=== PATIENT | female | born 1990 | race Caucasian/White ===

== ENCOUNTER 2019-02-10 12:04 | Emergency (ER) | payer OTHER ==
[~2019-02-10] VITALS: Ht 154.9 cm; Wt 83.0 kg
[2019-02-10 12:36] VITALS: BP 117/72; PULSE 92; RESP 18; Ht 154.9 cm; Wt 83.0 kg
[2019-02-10] MEDS ORDERED: SODI126M NASAL (13:26)
--- NOTE | 2019-02-10 13:30 | ERD ---
ER Documentation Chief Complaint Chief Complaint sent by pmd, nose bleed after sneezing this am 37 wks HPI 28-year-old female presents with complaint of epistaxis which occurred this morning. Patient states that the bleeding lasted about 5 minutes. She called her primary care provider who said that she should come to the ER. Denies any current bleeding. Denies history of bleeding disorders. Denies dizziness, lightheadedness, palpitations, syncope. ROS All systems reviewed and are negative except as per history of present illness. Medications Home Meds Active Scripts Sodium Chloride (Saline Nasal Mist) 126 Ml Mist, 2 SPRAY NASAL Q4 PRN for nose bleed, #1 BOTTLE Prov:DAVID MENJIVAR 02/10/19 Allergies Allergies: Coded Allergies: No Known Allergy (Unverified , 02/10/19) Physical Exam Vitals Vital Signs Date Temp Pulse Resp B/P (MAP) Pulse Ox O2 O2 Flow FiO2 Time Delivery Rate 02/10/19 98.2 92 18 117/72 98 12:36 (87) Physical Exam Const: No acute distress Head: Atraumatic Eyes: Normal Conjunctiva ENT: Normal External Ears, Nose and Mouth. No discharge or blood coming out of the nose. Neck: Full range of motion. No meningismus. Resp: Clear to auscultation bilaterally Cardio: Regular rate and rhythm, no murmurs Abd: Soft, non tender, non distended. Normal bowel sounds Skin: No petechiae or rashes Back: No midline or flank tenderness Ext: No cyanosis, or edema Neur: Awake and alert Psych: Normal Mood and Affect Procedures/MDM DM: Patient's presentation is consistent with epistaxis episode which self resolved. Patient does not need any treatment at this time. Patient was reassured that there was no clinical concern but the patient could use nasal saline mist in order to prevent possible episodes of epistaxis in the future. I have low suspicion for symptomatic anemia, bleeding disorder, shock, or any other emergent condition. Patient discharged with strict ER precautions. Patient advised to follow up with PMD. All questions answered at discharge. Departure Diagnosis: Primary Impression: Epistaxis Condition: Stable Patient Instructions: Epistaxis (Adult) Referrals: COMMUNITY CLINICS YOU HAVE RECEIVED A MEDICAL SCREENING EXAM AND THE RESULTS INDICATE THAT YOU DO NOT HAVE A CONDITION THAT REQUIRES URGENT TREATMENT IN THE EMERGENCY DEPARTMENT. FURTHER EVALUATION AND TREATMENT OF YOUR CONDITION CAN WAIT UNTIL YOU ARE SEEN IN YOUR DOCTORS OFFICE WITHIN THE NEXT 1-2 DAYS. IT IS YOUR RESPONSIBILITY TO MAKE AN APPOINTMENT FOR FOLOW-UP CARE. IF YOU HAVE A PRIMARY DOCTOR --you should call your primary doctor and schedule an appointment IF YOU DO NOT HAVE A PRIMARY DOCTOR YOU CAN CALL OUR PHYSICIAN REFERRAL HOTLINE AT IF YOU CAN NOT AFFORD TO SEE A PHYSICIAN YOU CAN CHOSE FROM THE FOLLOWING CRITICAL [facility]ESS [facility] CLINICS [facility] [address] [facility] [address] [facility] [facility] [address] [facility] [address] [facility] [address] [facility] [facility]. [address] Additional Instructions: FOLLOW UP WITH YOUR PRIMARY CARE PHYSICIAN TOMORROW.Return to this facility if you are not improving as expected. DAVID MENJIVAR Feb 10, 2019 13:29
== END 2019-02-10 14:04 | disposition left against medical advice (07) ==
LOC: FTE 12:04
DX: O99.89 Other specified diseases and conditions complicating pregnancy, childbirth and the puerperium (principal); R04.0 Epistaxis; Z3A.37 37 weeks gestation of pregnancy
CPT/HCPCS: 99282

== ENCOUNTER 2019-02-28 09:00 | Inpatient (IN) | payer OTHER ==
[~2019-02-28] VITALS: Ht 162.6 cm; Wt 84.4 kg
[~2019-02-28 09:00] MED LIST: SODI126M NASAL
[2019-03-04 07:20] VITALS: Ht 162.6 cm; Wt 84.4 kg
[2019-03-04] MEDS ORDERED: CARBOPROST 250 MCG INJ IM PRN ×2 (07:30→10:30)
[2019-03-04] MEDS ORDERED: MISOPROSTOL 200 MCG TAB PR PRN ×2 (07:30→10:30)
[2019-03-04] MEDS ORDERED: OXYTOCIN 30 UNITS/LR 500 ML IV SCH ×2 (07:30→10:07)
[2019-03-04] MEDS ORDERED: METHYLERGONOVINE 0.2 MG INJ IM PRN ×2 (07:30→10:30)
[2019-03-04] MEDS ORDERED: OXYTOCIN 30 UNITS/LR 500 ML IV PRN ×2 (07:30→10:30)
--- NOTE | 2019-03-04 07:32 | PREOPHP ---
DATE OF ADMISSION: 03/04/2019 HISTORY OF PRESENT ILLNESS: This is a 27-year-old lady, 2, para 1. Her EDC 03/07/2019. She is about 39 and 4/7 weeks , admitted to labor and delivery area for repeat . She h ad care in my [place] office and the care was uneventful. She had one previous C-s ection, so she likes to have a repeat . The procedures were explained to the patient and sh e understood everything totally. The risks, benefits and alternatives were discussed with her as wel l, but chose to have the done. OBSTETRICAL HISTORY: She is 2, para 1. Her first delivery was in 2013 by . GYNECOLOGIC HISTORY: She had menarche at the age of 13, every 28 days interval, 3 to 4 days duration , and moderate in amount. FAMILY HISTORY: Noncontributory, except her sister had kidney problems. REVIEW OF SYSTEMS: CARDIOVASCULAR: No chest pains. RESPIRATORY: No cough. GASTROINTESTINAL: No diarrhea. No vomiting. GENITOURINARY: No dysuria. PHYSICAL EXAMINATION: GENERAL: Reveals a conscious, coherent lady and in no acute distress. VITAL SIGNS: Her blood pressure 120/80, pulse rate 80 per minute, respirations 16 per minute. BREASTS, HEART AND LUNGS: Within normal limits. ABDOMEN: Soft, fundic height 37 cm. heart tones 140 per minute. PELVIC: Deferred. RECTAL: Confirmed the pelvic findings. EXTREMITIES: No pedal edema. ADMITTING DIAGNOSIS: A 39 and 4/7 weeks intrauterine with one previous section. PLAN: The patient was planned to have repeat per patient request. As mentioned, the proce dures were explained to the patient and she understood everything totally. The risks, benefits, and alternatives were discussed with her as well. Dictated By: REGINA MURILLO/JEREMY Conf#: [id number] DID#: [id number]
[2019-03-04] MEDS ORDERED: ONDANSETRON 4 MG INJ IV STA (07:37)
[2019-03-04] MEDS ORDERED: FAMOTIDINE 20 MG INJ IV ONE (08:00)
[2019-03-04] MEDS ORDERED: METOCLOPRAMIDE 10 MG INJ IV ONE (08:00)
[2019-03-04] MEDS: LACTATED RINGER'S 1,000 ML IV SCH ×3 (08:08→23:28)
[2019-03-04] MEDS ORDERED: morphine SULFATE/PF (10 MG/10 ML) INJ ONE (08:17)
[2019-03-04] MEDS ORDERED: OXYTOCIN 10 UNIT INJ ONE (08:18)
[2019-03-04] MEDS ORDERED: OXYTOCIN 30 UNITS/LR 500 ML IV ONE (08:18)
--- NOTE | 2019-03-04 08:22 | PREAC ---
Date/Time of Note Date/Time of Note DATE: 03/04/19 TIME: 08:21 Anesthesia Eval and Record Evaluation Time Pre-Procedure Interview DATE: 03/04/19 TIME: 08:21 Age 28 Sex female NPO: 8 hrs Preoperative diagnosis term labor, prev Csection Planned procedure repeat Csection Past Medical History Past Medical History: None Surgery & Anesthesia Issues No known issue Meds Anticoagulation: No Beta Sophia within 24 hr: No Reason Beta Sophia not given: Pt. not on B-Sophia Active Scripts Sodium Chloride (Saline Nasal Mist) 126 Ml Mist, 2 SPRAY NASAL Q4 PRN for nose bleed, #1 BOTTLE Prov:DAVID MENJIVAR 02/10/19 Current Medications Lactated Ringer's 1,000 ml @ 125 mls/hr Q8H IV Last administered on 03/04/19at 08:08; Admin Dose 125 MLS/HR; Start 03/04/19 at 07:19 Cefazolin Sodium/ Dextrose 50 ml @ 100 mls/hr ONCE IVPB ; Start 03/04/19 at 07:30 Oxytocin/Lactated Ringer's 500 ml @ 125 mls/hr POST IV ; Start 03/04/19 at 07:30 Oxytocin/Lactated Ringer's 500 ml @ 0 mls/hr ONCE PRN IV .VAGINAL BLEEDING; Start 03/04/19 at 07:30 Methylergonovine Maleate (Methergine) 0.2 mg ONCE PRN IM .VAGINAL BLEEDING; Start 03/04/19 at 07:30 Carboprost Tromethamine (Hemabate) 250 mcg ONCE PRN IM .VAGINAL BLEEDING; Start 03/04/19 at 07:30 Misoprostol (Cytotec) 1,000 mcg ONCE PRN RI .VAGINAL BLEEDING; Start 03/04/19 at 07:30 Meds reviewed: Yes Allergies Coded Allergies: No Known Allergy (Unverified , 03/04/19) Allergies Reviewed: Yes Labs/Studies Labs Reviewed: Reviewed by anesthesiologist Result Diagram: 03/04/1930 Laboratory Tests 03/04/19 07:30 Blood Bank Test 03/04/19 07:30 Blood Type O POSITIVE Rh Immune Globulin Candidate NO test: Positive Pre-procedure Exam Airway: Adequate mouth opening, Adequate thyromental dist Mallampati: Mallampati III Teeth: Normal Lung: Normal Heart: Normal ASA Physical Status ASA physical status: 2 Emergency: None Planned Anesthetic Neuraxial: Spinal Planned Pain Management Sub-arachniod narcotics, Parenteral pain med, Other neuraxial med Pre-operative Attestations Prior to commencing anesthesia and surgery, the patient was re-evaluated, there was verification of: *The patient's identity *The results of appropriate recent lab work and preoperative vital signs *The above evaluation not changing prior to induction *Anesthetic plan, risk benefits, alternative and complications discussed with patient/family; questions answered; patient/family understands, accepts and wishes to proceed. KATHERINE SANDHU MD March 04, 2019 08:22
[2019-03-04] MEDS ORDERED: FENTAnyl 50 MCG/ML VIAL IV PRN ×2 (08:30)
[2019-03-04] MEDS ORDERED: KETOROLAC 30 MG INJ IV PRN ×2 (08:30)
[2019-03-04] MEDS ORDERED: HYDROmorphONE 1 MG/5 ML IV SYRINGE IV PRN ×3 (08:30)
[2019-03-04] MEDS ORDERED: HYDROmorphONE 0.5 MG/0.5 ML SYG IV PRN ×2 (08:30)
[2019-03-04] MEDS ORDERED: ONDANSETRON 4 MG INJ IV PRN ×2 (08:30)
[2019-03-04] MEDS ORDERED: NALOXONE (0.4 MG/ML) INJ IV PRN ×3 (08:30)
[2019-03-04] MEDS ORDERED: ZOLPIDEM 5 MG TAB PO PRN (08:30)
[2019-03-04] MEDS ORDERED: DIPHENHYDRAMINE 50 MG INJ IV PRN ×2 (08:30)
[2019-03-04] MEDS ORDERED: LACTATED RINGER'S 1,000 ML IV SCH (10:07)
--- NOTE | 2019-03-04 10:07 | OPPN ---
Date/Time of Note Date/Time of Note DATE: 03/04/19 TIME: 10:04 Operative Report Planned Procedure Procedure date March 04, 2019 Procedure(s) REPEAT LTCS Performed by see signature line Personal Care Attendant: ADE KIMBLE MD 2nd Personal Care Attendant none Anesthesiologist: KATHERINE SANDHU MD Pre-procedure diagnosis 39 4/7 IUP PREVIOS CSECTION [id number] Anesthesia Type: Gixld2k spinal Post-Procedure Post-procedure diagnosis 39 4/7 IUP Findings Live Baby, Apgars 8and9, [id number] 8OZ [id number] Estimated Blood Loss: 500 - 600 mls Specimen(s) none Grafts/Implant(s) PLACENTA Complication(s) none REGINA CAMPOS MD March 04, 2019 10:07
[2019-03-04] MEDS ORDERED: HYDROCODONE/APAP (5/325) TAB PO PRN (10:30)
[2019-03-04] MEDS ORDERED: METHYLERGONOVINE 0.2 MG TAB PO PRN (10:30)
[2019-03-04] MEDS ORDERED: LANOLIN HPA 1 PKT TOP PRN (10:30)
[2019-03-04] MEDS ORDERED: IBUPROFEN 800 MG TAB PO PRN (10:30)
[2019-03-04] MEDS: CEFAZOLIN 2 GM/50 ML (PMX) 50 ML IVPB SCH ×2 (11:26→16:36)
[2019-03-04 14:55] VITALS: BP 103/65; PULSE 73; RESP 18
--- NOTE | 2019-03-04 16:41 | PAC ---
Date/Time of Note Date/Time of Note DATE: 03/04/19 TIME: 16:40 Post-Anesthesia Notes Post-Anesthesia Note Last documented vital signs Vital Signs Date Temp Pulse Resp B/P (MAP) Pulse Ox O2 O2 Flow FiO2 Time Delivery Rate 03/04/19 98.0 73 18 103/65 14:55 (78) Activity: WNL Respiratory function: WNL Cardiovascular function: WNL Mental status: Baseline Pain reasonably controlled: Yes Hydration appropriate: Yes Nausea/Vomiting absent: Yes KATHERINE SANDHU MD March 04, 2019 16:41
[2019-03-04 18:33] VITALS: BP 108/64; PULSE 67; RESP 18
[2019-03-04 19:55] VITALS: BP 103/69; PULSE 86; RESP 19
[2019-03-04] MEDS: SENNA/DOCUSATE NA (8.6MG/50MG) TAB PO SCH (21:20)
[2019-03-04 23:55] VITALS: BP 114/63; PULSE 75; RESP 19
[2019-03-05 03:15] VITALS: BP 114/70; PULSE 80; RESP 18
--- NOTE | 2019-03-05 06:21 | OPR ---
DATE OF OPERATION: 03/04/2019 PREOPERATIVE DIAGNOSIS: A 39 and 4/7 weeks intrauterine with 1 previous , desires repeat . POSTOPERATIVE DIAGNOSIS: A 39 and 4/7 weeks intrauterine with 1 previous , desire s repeat . OPERATION PERFORMED: Repeat low transverse section. SURGEON: Regina Parrish MD CERTIFIED TECHNICIAN: Dr. Matt ANESTHESIA: Spinal. ANESTHESIOLOGIST: Dr. Marti. OPERATIVE TECHNIQUE: Under spinal anesthesia, the patient was prepped and draped in the usual fashio n for abdominal surgery. After checking for the effect of the anesthesia, the previous Pfannenstiel scar was excised. A 10 cm skin incision was performed. The incision was carried from the skin up to the fascia. Upon opening the skin up to the fascia, the small blood vessels were noted to be oozing and these were all cauterized. Fascia was opened transversely followed by splitting the muscles reva tically and the peritoneum vertically. Upon opening the abdominal cavity, the bladder blade was put in place. A small rubia was performed from the serosa up to the endometrium, and the rubia was carried sideways with the aid of my 2 fingers and the incision was carried out and the rubia was carried side ways with the aid of my 2 fingers. My left hand was inserted in the lower segment of the uterus and the bag of water was ruptured. Clear fluid was noted. Baby's head was delivered with good fundal pr essure. The baby's airway was quickly suctioned with amniotic fluid. The anterior shoulder, posteri or shoulder, and rest of the body of the baby was delivered. Baby's cord was clamped after 30 second s and baby was handed to the manufacturing plant technician and to the nursery nurse. The placenta was delivered m anually and complete. The uterus was exteriorized. The uterus was cleansed with wet lap sponge to m omari sure that no membranes were left behind. After correct sponge count, the uterus was closed in the usual fashion using #1 chromic for the first layer, continuous locking suture was used follow ed by #1 chromic for the second layer, imbricating sutures were used. Bleeders were checked, and the re was no bleeding noted. After checking for bleeders in which there were none, both tubes and ovari es were inspected. They were healthy looking. The back of the uterus was checked for any hematoma a nd there was none noted. There was a 4 x 4 cm intramural fibroids noted in the mid back of the uteru s. Both ovaries were inspected, they were healthy looking and both tubes. The broad ligament was ch ecked for any hematoma and there was none noted. After correct sponge, then the uterus was put back to the pelvic cavity. Once again, uterine incision was checked for any bleeders and there was no ble eding noted. After correct sponge count, needle count and instrument count as confirmed by the oil bay technician and slinger sequins, the abdomen was closed in the usual fashion using 0 Vicryl for the peritoneum, 0 Vicryl for the muscles, for the fascia 0 Vicryl continuous stitch was used followed by few figure-o f-eight sutures, for the subcutaneous tissue, it was closed with 3-0 Vicryl and the skin was closed w ith 3-0 Vicryl, subcuticular suture was used. The patient tolerated the procedure well. Estimated b lood loss about 600 mL. Vital signs were stable during and after the procedure. She delivered a hea lthy baby girl, 8 and 9 at 09:23 a.m., 19 inches long, 2960 grams, 6 pounds 8 ounces. Dictated By: REGINA MURILLO/JEREMY Conf#: [id number] DID#: [id number]
[2019-03-05] MEDS: LACTATED RINGER'S 1,000 ML IV SCH (07:19)
[2019-03-05 08:00] VITALS: BP 129/83; PULSE 86; RESP 17
[2019-03-05] MEDS: CEFAZOLIN 2 GM/50 ML (PMX) 50 ML IVPB SCH (08:51)
[2019-03-05] MEDS: SENNA/DOCUSATE NA (8.6MG/50MG) TAB PO SCH ×2 (09:04→20:12)
[2019-03-05] MEDS: HYDROCODONE/APAP (5/325) TAB PO PRN ×2 (10:46→16:51)
[2019-03-05 15:35] VITALS: BP 113/70; PULSE 99; RESP 18
--- NOTE | 2019-03-05 18:41 | PN ---
Date/Time of Note Date/Time of Note DATE: 03/05/19 TIME: 18:40 Assessment/Plan VTE Prophylaxis Risk score (from Ns)>0 risk: 3 SCD applied (from Ns): Yes Pharmacological prophylaxis: NA/contraindicated Pharm contraindication: low risk/ambulating Lines/Catheters IV Catheter Type (from Nrs): Peripheral IV Assessment/Plan Assessment/Plan POSTCSECTION DAY 1 ORDERED ADVANCE DIET TOLERATED CBC ON 3RD POSTOP DAY Result Diagram: 03/05/19 0740 03/05/19 0739 Results 24hrs Laboratory Tests Test 03/05/19 06:12 03/05/19 07:39 03/05/19 07:40 Lab Scanned Report REFERENCE LAB Sodium Level 135 Potassium Level 3.6 Chloride Level 106 Carbon Dioxide Level 25 Anion Gap 4 L Blood Urea Nitrogen 4 L Creatinine 0.57 Est Glomerular Filtrat > 60 Rate mL/min Glucose Level 92 Calcium Level 8.8 White Blood Count 11.9 #H Red Blood Count 3.94 L Hemoglobin 11.5 L Hematocrit 34.7 L Mean Corpuscular Volume 88.1 Mean Corpuscular Hemoglobin 29.2 Mean Corpuscular 33.1 Hemoglobin Concent Red Cell Distribution Width 13.5 Platelet Count 149 Mean Platelet Volume 10.1 Immature Granulocytes % 1.400 H Neutrophils % 82.0 H Lymphocytes % 8.8 L Monocytes % 7.1 Eosinophils % 0.3 Basophils % 0.4 Nucleated Red Blood Cells % 0.0 Immature Granulocytes # 0.170 H Neutrophils # 9.7 H Lymphocytes # 1.1 Monocytes # 0.9 Eosinophils # 0.0 Basophils # 0.1 Nucleated Red Blood Cells # 0.0 Subjective 24 Hr Interval Summary Free Text/Dictation POST CSECTION DAY 1 COMPLAIN OF INCISIONAL PAINS GOOD URINE OUTPUT PASSING GAS PER RECTUM NO BOWEL MOVEMENT YET Exam/Review of Systems Exam Vitals Vital Signs Date Temp Pulse Resp B/P (MAP) Pulse Ox O2 O2 Flow FiO2 Time Delivery Rate 03/05/19 98.5 99 18 113/70 15:35 (84) 03/05/19 98 Room Air 08:00 Intake and Output 03/04/19 03/04/19 03/05/19 1515:00 23:00 07:00 IntakeIntake Total 1475 ml 320 ml 300 ml OutputOutput Total 742 ml 1360 ml 2000 ml BalanceBalance 733 ml -1040 ml -1700 ml Exam VITAL SIGNS STABLE: YES AFEBRILE: YES BREAST NOT ENGORGED, NON-TENDER, NO APPRECIABLE MASS: YES LUNGS CLEAR, NO RALES, WHEEZES, RHONCHI: YES SINUS RHYTHM WITHOUT MURMUR: YES ABDOMEN: NON-TENDER FUNDUS: BELOW UMBILICUS BOWEL SOUNDS: PRESENT UTERUS: FIRM INCISION (CLEAN, DRY, AND INTACT): YES LOCHIA: LIGHT DEEP TENDON REFLEXES: 0 EXTREMITIES: NO CALF TENDERNESS EDEMA SCALE: NONE Results Results 24hrs Laboratory Tests Test 03/05/19 06:12 03/05/19 07:39 03/05/19 07:40 Lab Scanned Report REFERENCE LAB Sodium Level 135 Potassium Level 3.6 Chloride Level 106 Carbon Dioxide Level 25 Anion Gap 4 L Blood Urea Nitrogen 4 L Creatinine 0.57 Est Glomerular Filtrat > 60 Rate mL/min Glucose Level 92 Calcium Level 8.8 White Blood Count 11.9 #H Red Blood Count 3.94 L Hemoglobin 11.5 L Hematocrit 34.7 L Mean Corpuscular Volume 88.1 Mean Corpuscular Hemoglobin 29.2 Mean Corpuscular 33.1 Hemoglobin Concent Red Cell Distribution Width 13.5 Platelet Count 149 Mean Platelet Volume 10.1 Immature Granulocytes % 1.400 H Neutrophils % 82.0 H Lymphocytes % 8.8 L Monocytes % 7.1 Eosinophils % 0.3 Basophils % 0.4 Nucleated Red Blood Cells % 0.0 Immature Granulocytes # 0.170 H Neutrophils # 9.7 H Lymphocytes # 1.1 Monocytes # 0.9 Eosinophils # 0.0 Basophils # 0.1 Nucleated Red Blood Cells # 0.0 Medications Medication Current Medications Cefazolin Sodium/ Dextrose 50 ml @ 100 mls/hr ONCE IVPB ; Start 03/04/19 at 07:30 Oxytocin/Lactated Ringer's 500 ml @ 0 mls/hr ONCE PRN IV .VAGINAL BLEEDING; Start 03/04/19 at 07:30 Methylergonovine Maleate (Methergine) 0.2 mg Q6H PRN PO .VAGINAL BLEEDING; Start 03/04/19 at 10:30 Acetaminophen/ Hydrocodone Bitart ([place] (5/325)) 1 tab Q4H PRN PO MODERATE PAIN LEVEL 4-6; Start 03/04/19 at 10:30 Acetaminophen/ Hydrocodone Bitart ([place] (5/325)) 2 tab Q4H PRN PO SEVERE PAIN LEVEL 7-10 Last administered on 03/05/19 16:51; Admin Dose 2 TAB; Start 03/04/19 at 10:30 Simethicone (Mylicon) 160 mg Q8H PRN PO .GAS Last administered on 03/05/19at 16:51; Admin Dose 160 MG; Start 03/04/19 at 10:30 Senna/Docusate Sodium (Senokot-S) 1 tab BID PO Last administered on 03/05/19at 09:04; Admin Dose 1 TAB; Start 03/04/19 at 21:00 Lanolin (Lanolin Hpa) 1 applic BEDSIDE MEDICATION PRN TOP .NIPPLES; Start 03/04 at 10:30 Diphtheria/ Tetanus/Acell Pertussis (Adacel) 0.5 ml ONCE ONCE IM* ; Start 03/07/19 at 09:00; Stop 03/07/19 at 09:01 Measles/Mumps/ Rubella Vaccine Live (Mmr Ii Vaccine) 0.5 ml ONCE ONCE SC* ; Start 03/07/19 at 09:00; Stop 03/07/19 at 09:01 Oxytocin/Lactated Ringer's 500 ml @ 0 mls/hr ONCE PRN IV .VAGINAL BLEEDING; Start 03/04/19 at 10:30 Methylergonovine Maleate (Methergine) 0.2 mg ONCE PRN IM .VAGINAL BLEEDING; Start 03/04/19 at 10:30 Carboprost Tromethamine (Hemabate) 250 mcg ONCE PRN IM .VAGINAL BLEEDING; Start 03/04/19 at 10:30 Misoprostol (Cytotec) 1,000 mcg ONCE PRN PA .VAGINAL BLEEDING; Start 03/04/19 at 10:30 Ibuprofen (Motrin) 800 mg Q8H PRN PO MILD PAIN LEVEL 1-3; Start 03/05/19 at 10:00 REGINA CAMPOS MD March 05, 2019 18:41
[2019-03-05 20:12] VITALS: BP 112/83; PULSE 84; RESP 18
[2019-03-05] MEDS: IBUPROFEN 800 MG TAB PO PRN (20:12)
[2019-03-06] MEDS: HYDROCODONE/APAP (5/325) TAB PO PRN (00:16)
[2019-03-06 04:00] VITALS: BP 108/66; PULSE 80; RESP 19
[2019-03-06] MEDS: IBUPROFEN 800 MG TAB PO PRN ×2 (04:54→12:49)
[2019-03-06 07:30] VITALS: BP 108/72; PULSE 78; RESP 18
[2019-03-06] MEDS: SENNA/DOCUSATE NA (8.6MG/50MG) TAB PO SCH ×2 (12:36→21:14)
[2019-03-06 16:00] VITALS: BP 105/54; PULSE 91; RESP 18
[2019-03-06 20:30] VITALS: BP 101/72; PULSE 102; RESP 17
[2019-03-07 04:00] VITALS: BP 101/51; PULSE 112; RESP 18
[2019-03-07 08:00] VITALS: BP 105/75; PULSE 106; RESP 18
[2019-03-07] MEDS ORDERED: MEASLES,MUMPS,RUBELLA VACCINE INJ SC* ONE (09:00)
[2019-03-07] MEDS: SENNA/DOCUSATE NA (8.6MG/50MG) TAB PO SCH (09:00)
[2019-03-07] MEDS ORDERED: DIPHTH/TET/ACEL PERTUSS (ADULT) 0.5 ML VIAL IM* ONE (09:00)
--- NOTE | 2019-03-07 10:28 | PD.PPDC ---
OUTBOUND TELEMARKETER Discharge Instruction Diagnosis Oglou0Bu Final Diagnosis: Wraje1r s/p RC/S Condition Mclnm7Of Patient Condition: Vrlxv7j Stable Diet Ilqij8Gt Diet: Gkuvt9w Resume Regular Diet Activity/Restrictions [id number] Activity: Rdeds7y May Shower Ltibi1Yg Restrictions: Jpuik5s No Exercising No Lifting Minimize Stair-climbing No Sexual Activity Nothing in the Vagina No [place] No Tampons, douche Wound/Drain Care Instructions Tjnug7Hv Wound/Drain Care Instructions: Aomye4z Wash with soap and water Keep clean and dry Follow-up Follow-up with Physician: 2, Week/Weeks Return to clinic for Hjsdz6Zk RADIO FREQUENCY DESIGN ENGINEER Instructions: Wqpgd2v Fever greater than 101 Chills Worsening abdominal pain Excessive Vaginal Bleeding More than 2 pads per hour Unable to tolerate diet Ohdyz3On OB Instructions: Pwzek9y Breast Tenderness Depression Blurried Vision Dbavj4Jn Surgical Instructions: Jwviq2u Incisional Drainage Incisional Redness ADE KIMBLE MD March 07, 2019 10:28
--- NOTE | 2019-03-07 10:35 | DS ---
Date/Time of Note Date/Time of Note DATE: 03/07/19 TIME: 10:33 Obstetrical Discharge Record Final Diagnosis Final Diagnosis: Term delivered Section Section: Repeat Complications Augmentation: No Induction: No Rupture of Membranes: No Condition on Discharge Physical Assessment Last Vitals: VSS afebrile Voiding: Yes Fundus: Firm Abdomen and Incision: wound dry abdomen soft Calf Tenderness: No Patient Condition: Stable ADE KIMBLE MD March 07, 2019 10:35
--- NOTE | 2019-03-08 14:44 | DELSUM ---
Delivery Summary A-C Datetime Report Generated by CPN: 03/08/2019 14:43 DELIVERY PERSONNEL Silver Service Waiter: Tang Solomon MATERNAL INFORMATION Delivery Anesthesia: Spinal Medications in Delivery: SEE ANESTHESIA RECORDS Delivery QBL (ml): 600 Placenta Cultured: No Maternal Complications: None LABOR SUMMARY EDC: 03/07/2019 00:00 No. Babies in Womb: 1 Attempted: No Labor Anesthesia: None LABOR INFORMATION Oxytocin: N/A Group B Beta Strep: Negative Antibiotics # of Doses: 1 Antibiotics Time of Last Dose: 03/04/2019 09:15 Steroids Given: None Reason Steroids Not Administered: Not Applicable MEMBRANES Membranes Rupture Method: Artificial Rupture of Membranes: 03/04/2019 09:22 Length of Rupture (hr): 0.02 Amniotic Fluid Color: Clear Amniotic Fluid Amount: Small Amniotic Fluid Odor: None STAGES OF LABOR Stage 3 hr: 0 Stage 3 min: 7 CSECTION DELIVERY Primary Indication: Repeat Elective Secondary Indication: N/A CSection Urgency: Elective CSection Incidence: Repeat Labor: No Labor Elective: N/A CSection Incision: Lower Uterine Transverse BABY A INFORMATION Delivery Date/Time: 03/04/2019 09:23 Method of Delivery: Born in Route : No : N/A Forceps: N/A Vacuum Extraction: N/A Shoulder Dystocia : No SHOULDER DYSTOCIA BABY A Infant Delivery Date/Time: 03/04/2019 09:23 PRESENTATION/POSITION BABY A Presentation: Cephalic Cephalic Presentation: N/A Breech Presentation: N/A PLACENTA INFORMATION BABY A Placenta Delivery Time : 03/04/2019 09:30 Placenta Method of Delivery: Manual Removal Placenta Status: Delivered SCORES BABY A Heart Rate 1 min: >100 bpm Resp Effort 1 min: Good Cry Reflex Irritability 1 min: Cough/Sneeze/Pulls Away Muscle Tone 1 min: Active Motion Color 1 min: Blue/Pale Resuscitation Effort 1 min: Tactile Stimulation SCORE 1 MIN: 8 Heart Rate 5 min: >100 bpm Resp Effort 5 min: Good Cry Reflex Irritability 5 min: Cough/Sneeze/Pulls Away Muscle Tone 5 min: Active Motion Color 5 min: Body [place], Extremit Blue Resuscitation Effort 5 min: Tactile Stimulation SCORE 5 MIN: 9 INFANT INFORMATION BABY A Gestational Age at Delivery: 39.4 Gestational Status: Full Term- 39- 40.6 Weeks Infant Outcome : Liveborn Condition : Stable Infant Sex: Female IDENTIFICATION/MEDS BABY A ID Band Number: [id number] ID Band Location: Right Leg; Left Arm Sensor Applied: Yes Sensor Number: [id number] Sensor Location : Cord Clamp Vitamin K Given : Not Given Erythromycin Given: Not Given WEIGHT/LENGTH BABY A Birthweight (gm): 2960 Infant Weight (lb): 6 Weight (oz): 8 Infant Length (in): 19.00 Length (cm): 48.26 CORD INFORMATION BABY A No. Cord Vessels: 3 Nuchal Cord : N/A Cord Blood Taken: Yes Infant Suction: Mouth; Nose ASSESSMENT BABY A Complications: None Physical Findings at Delivery: Within Normal Limits Respirations: Appears Normal Horticulture/Floriculture Teacher/ALS Called : No Infant Care By: Faith COTA, NICU RT Transferred To: Remains with Mother
== END 2019-03-07 14:43 | disposition home or self-care (01) | DRG 788 ==
LOC: L-D 03-04 06:22 → PP1 03-04 17:08
PROVIDERS: ADMIT Obstetrics & Gynecology; ATTEND Obstetrics & Gynecology
PROC: 10D00Z1 Extraction of Products of Conception, Low, Open Approach (ICD-10-PCS; principal; 2019-03-04 09:00)
DX: O34.211 Maternal care for low transverse scar from previous cesarean delivery (principal); Z3A.39 39 weeks gestation of pregnancy; Z37.0 Single live birth
CPT/HCPCS: 80048; 80307; 85025; 85610; 85730; 86592; 86850; 86900; 86901; 87340; 99464; J0690; J1170; J1200; J1885; J2274; J2405; J2590; J2765; J7120